=== PATIENT | male | born 1955 | race Caucasian/White ===

== ENCOUNTER 2018-03-28 13:02 | Emergency (ER) | payer BC, OTHER ==
[2018-03-28 13:47] LABS: ADD MAN DIFF? NO
[2018-03-28 13:51] LABS: WHITE BLOOD COUNT 10.4 10^3/ul (4.8-10.8)
[2018-03-28 13:51] LABS: BASOPHIL # 0.1 10^3/ul (0.0-0.1); BASOPHILS % 0.5 % (0.0-2.0); EOSINOPHILS # 0.2 10^3/ul (0.0-0.5); EOSINOPHILS % 1.8 % (0.0-7.0); HEMATOCRIT 47.9 % (42.0-52.0); HEMOGLOBIN 15.8 g/dl (14.0-18.0); LYMPHOCYTES # 1.1 10^3/ul (0.8-2.9); LYMPHOCYTES % 10.9 % (15.0-51.0); MEAN CORPUSCULAR HEMOGLOBIN 29.6 pg (29.0-33.0); MEAN CORPUSCULAR VOLUME 89.9 fl (82.0-101.0); MEAN PLATELET VOLUME 10.9 fl (7.4-10.4); MONOCYTE # 0.5 10^3/ul (0.3-0.9); MONOCYTES % 4.3 % (0.0-11.0); NEUTROPHIL # 8.6 10^3/ul (1.6-7.5); NEUTROPHILS % 82.2 % (39.0-77.0); PLATELET COUNT 242 10^3/UL (140-415); RED BLOOD COUNT 5.33 10^6/ul (4.70-6.10); RED CELL DISTRIBUTION WIDTH 13.3 % (11.5-14.5)
[2018-03-28 14:10] LABS: ALANINE AMINOTRANSFERASE 29 IU/L (13-69); ALBUMIN 4.1 g/dl (3.3-4.9); ALBUMIN/GLOBULIN RATIO 1.28; ALKALINE PHOSPHATASE 73 IU/L (42-121); ANION GAP 13 (8-16); ASPARTATE AMINO TRANSFERASE 26 IU/L (15-46); BILIRUBIN,INDIRECT 0.6 mg/dl (0-1.1); BILIRUBIN,TOTAL 0.6 mg/dl (0.2-1.3); BLOOD UREA NITROGEN 19 mg/dl (7-20); CALCIUM 9.1 mg/dl (8.4-10.2); CARBON DIOXIDE 25 mmol/L (21-31); CHLORIDE 104 mmol/L (97-110); CREATININE 1.43 mg/dl (0.61-1.24); GLUCOSE 80 mg/dl (70-220); LIPASE 113 U/L (23-300); POTASSIUM 4.1 mmol/L (3.5-5.1); SODIUM 138 mmol/L (135-144); TOTAL PROTEIN 7.3 g/dl (6.1-8.1)
[2018-03-28] MEDS: SOD CHLORIDE 0.9% 1,000 ML IV (14:14)
[2018-03-28 14:22] LABS: TROPONIN-I < 0.010 ng/ml (0.000-0.120)
== END 2018-03-28 16:53 | disposition home or self-care (01) ==
LOC: E/R 13:02
DX: E86.0 Dehydration (principal); R55 Syncope and collapse; I10 Essential (primary) hypertension; Z91.010 Allergy to peanuts
CPT/HCPCS: 36415; 80053; 83690; 84484; 85025; 93005; 99284-25